=== PATIENT | female | born 1940 | race American Indian/Alaskan Native ===

== ENCOUNTER → 2023-10-04 09:50 | Outpatient (REF) | payer MEDICARE, OTHER, SELFPAY ==
[2023-10-04 10:40] LABS: % Basophils 0.6 % (0-2); % Eosinophils 1.9 % (0-6); % Lymphocytes 45.9 % (20.5-51.1); % Monocytes 7.5 % (1.7-9.3); % Neutrophils 44.1 % (42.2-75.2); Absolute Eosinophils 0.1 10^3/uL (0-0.7); Absolute Lymphocytes 2.4 10^3/uL (1.2-3.4); Absolute Monocytes 0.4 10^3/uL (0.1-0.6); Absolute Neutrophils 2.3 10^3/uL (1.4-6.5); Hematocrit 38.5 % (37.0-47.0); Hemoglobin 13.1 g/dL (12.0-16.0); Mean Corpuscular Hgb 30.5 pg (27.0-31.0); Mean Corpuscular Volume 89.7 fL (81.0-99.0); Mean Platelet Volume 11.9 fL (7.4-10.4); Nucleated Red Blood Cells % 0 %; Platelet Count 170 10^3/uL (130-400); Red Blood Cell Count 4.29 10^6/uL (4.20-5.40); Red Cell Dist. Width 12.9 % (11.5-14.5); White Blood Cell Count 5.2 10^3/uL (4.8-10.8)
[2023-10-04 10:46] LABS: PT 23.8 Sec (11.4-14.6)
[2023-10-04 11:20] LABS: ALT (SGPT) 29 U/L (0-35); AST (SGOT) 38 U/L (14-36); Albumin 4.1 g/dl (3.5-5.0); Alkaline Phosphatase 77 U/L (38-126); Blood Urea Nitrogen 22 mg/dl (7-17); Calcium 9.3 mg/dl (8.4-10.2); Carbon Dioxide 26 mmol/L (22-30); Chloride 107 mmol/L (98-107); Glucose 110 mg/dl (70-99); HDL Cholesterol 63 mg/dl; LDL Cholesterol, Calculated 63 mg/dl; Potassium 4.6 mmol/L (3.5-5.1); Sodium 137 mmol/L (135-145); Total Bilirubin 0.5 mg/dl (0.2-1.3); Total Cholesterol 150 mg/dl (50-199); Triglyceride 124 mg/dl (10-149); Very Low Density Lipoprotein 24 mg/dl (0-30); eGFR > 60.00
[2023-10-04 11:35] LABS: Vitamin D, 25-OH*** 67.4 ng/mL (30-80)
[2023-10-04 11:49] LABS: TSH 0.36 uIU/ml (0.47-4.68)
[2023-10-04 13:24] LABS: Glycohemoglobin (HgbA1c) 6.1 % (4.0-5.6)
[2023-10-05 22:01] LABS: Insulin, Random 17 uIU/mL
== END ==
LOC: OLABPV 09:50
PROVIDERS: ATTENDING PHYSICIAN Internal Medicine; FAMILY PHYSICIAN Internal Medicine
DX: I48.0 Paroxysmal atrial fibrillation (principal); E78.00 Pure hypercholesterolemia, unspecified; M85.9 Disorder of bone density and structure, unspecified; R73.03 Prediabetes; E03.9 Hypothyroidism, unspecified; E55.9 Vitamin D deficiency, unspecified
CPT/HCPCS: 36415; 80053; 80061; 82306; 83036; 83525; 84443; 85025; 85610

== ENCOUNTER → 2023-11-01 10:05 | Outpatient (REF) | payer MEDICARE, OTHER, SELFPAY ==
[2023-11-01 11:31] LABS: INR 2.55; PT 27.7 Sec (11.4-14.6)
== END ==
LOC: OLABPV 10:05
PROVIDERS: ATTENDING PHYSICIAN Internal Medicine
DX: I48.0 Paroxysmal atrial fibrillation (principal)
CPT/HCPCS: 36415; 85610

== ENCOUNTER → 2023-11-29 09:17 | Outpatient (REF) | payer MEDICARE, OTHER, SELFPAY ==
[2023-11-29 11:08] LABS: INR 2.16; PT 24.3 Sec (11.4-14.6)
== END ==
LOC: OLABPV 09:17
PROVIDERS: ATTENDING PHYSICIAN Internal Medicine
DX: I48.0 Paroxysmal atrial fibrillation (principal)
CPT/HCPCS: 36415; 85610

== ENCOUNTER → 2023-12-27 10:34 | Outpatient (REF) | payer MEDICARE, OTHER, SELFPAY ==
[2023-12-27 11:30] LABS: INR 2.15; PT 24.2 Sec (11.4-14.6)
== END ==
LOC: OLABPV 10:34
PROVIDERS: ATTENDING PHYSICIAN Internal Medicine
DX: I48.0 Paroxysmal atrial fibrillation (principal)
CPT/HCPCS: 36415; 85610

== ENCOUNTER → 2024-01-24 09:48 | Outpatient (REF) | payer MEDICARE, OTHER, SELFPAY ==
[2024-01-24 10:25] LABS: INR 2.79; PT 29.4 Sec (11.4-14.6)
== END ==
LOC: OLABPV 09:48
PROVIDERS: ATTENDING PHYSICIAN Internal Medicine
DX: I48.0 Paroxysmal atrial fibrillation (principal)
CPT/HCPCS: 36415; 85610

== ENCOUNTER → 2024-02-20 16:06 | Outpatient (REF) | payer MEDICARE, OTHER, SELFPAY ==
[2024-02-20 16:40] LABS: INR 3.06; PT 31.6 Sec (11.4-14.6)
== END ==
LOC: OLABPV 16:06
PROVIDERS: ATTENDING PHYSICIAN Internal Medicine
DX: I48.0 Paroxysmal atrial fibrillation (principal)
CPT/HCPCS: 36415; 85610

== ENCOUNTER → 2024-03-19 11:37 | Outpatient (REF) | payer MEDICARE, OTHER, SELFPAY ==
[2024-03-19 12:11] LABS: INR 2.88; PT 30.1 Sec (11.4-14.6)
== END ==
LOC: OLABPV 11:37
PROVIDERS: ATTENDING PHYSICIAN Internal Medicine
DX: I48.0 Paroxysmal atrial fibrillation (principal)
CPT/HCPCS: 36415; 85610

== ENCOUNTER → 2024-04-08 14:03 | Outpatient (REF) | payer MEDICARE, OTHER, SELFPAY | LOC: WDC 14:03 | PROVIDERS: ATTENDING PHYSICIAN Internal Medicine | DX: Z12.31 Encounter for screening mammogram for malignant neoplasm of breast (principal) | CPT/HCPCS: 77063; 77067 ==

== ENCOUNTER → 2024-04-16 10:12 | Outpatient (REF) | payer MEDICARE, OTHER, SELFPAY ==
[2024-04-16 11:35] LABS: INR 2.86; PT 29.9 Sec (11.4-14.6)
== END ==
LOC: OLABPV 10:12
PROVIDERS: ATTENDING PHYSICIAN Internal Medicine; FAMILY PHYSICIAN Internal Medicine
DX: I48.0 Paroxysmal atrial fibrillation (principal); E03.9 Hypothyroidism, unspecified
CPT/HCPCS: 36415; 84443; 85610

== ENCOUNTER → 2024-05-14 09:49 | Outpatient (REF) | payer MEDICARE, OTHER, SELFPAY ==
[2024-05-14 10:54] LABS: PT 30.2 Sec (11.4-14.6)
== END ==
LOC: OLABPV 09:49
PROVIDERS: ATTENDING PHYSICIAN Internal Medicine
DX: I48.0 Paroxysmal atrial fibrillation (principal)
CPT/HCPCS: 36415; 85610

== ENCOUNTER → 2024-06-18 10:36 | Outpatient (REF) | payer MEDICARE, OTHER, SELFPAY ==
[2024-06-18 11:40] LABS: PT 23.4 Sec (11.4-14.6)
== END ==
LOC: OLABPV 10:36
PROVIDERS: ATTENDING PHYSICIAN Internal Medicine
DX: I48.0 Paroxysmal atrial fibrillation (principal)
CPT/HCPCS: 36415; 85610

== ENCOUNTER → 2024-07-16 09:28 | Outpatient (REF) | payer MEDICARE, OTHER, SELFPAY ==
[2024-07-16 10:51] LABS: INR 1.66; PT 19.8 Sec (11.4-14.6)
== END ==
LOC: OLABPV 09:28
PROVIDERS: ATTENDING PHYSICIAN Internal Medicine
DX: I48.0 Paroxysmal atrial fibrillation (principal)
CPT/HCPCS: 36415; 85610

== ENCOUNTER → 2024-07-23 09:56 | Outpatient (REF) | payer MEDICARE, OTHER, SELFPAY ==
[2024-07-23 10:37] LABS: INR 2.05; PT 23.2 Sec (11.4-14.6)
== END ==
LOC: OLABPV 09:56
PROVIDERS: ATTENDING PHYSICIAN Internal Medicine
DX: I48.0 Paroxysmal atrial fibrillation (principal)
CPT/HCPCS: 36415; 85610

== ENCOUNTER → 2024-07-25 11:35 | Outpatient (REF) | payer MEDICARE, OTHER, SELFPAY ==
[2024-07-30 10:54] LABS: INR 2.25
== END ==
LOC: OLABPV 11:35
PROVIDERS: ATTENDING PHYSICIAN Internal Medicine
DX: I48.0 Paroxysmal atrial fibrillation (principal)
CPT/HCPCS: 36415; 85610

== ENCOUNTER → 2024-08-06 09:13 | Outpatient (REF) | payer MEDICARE, OTHER, SELFPAY ==
[2024-08-06 10:32] LABS: INR 3.02; PT 31.2 Sec (11.4-14.6)
== END ==
LOC: OLABPV 09:13
PROVIDERS: ATTENDING PHYSICIAN Internal Medicine
DX: I48.0 Paroxysmal atrial fibrillation (principal)
CPT/HCPCS: 36415; 85610

== ENCOUNTER → 2024-08-13 09:44 | Outpatient (REF) | payer MEDICARE, OTHER, SELFPAY ==
[2024-08-13 10:37] LABS: INR 3.08; PT 31.7 Sec (11.4-14.6)
== END ==
LOC: OLABPV 09:44
PROVIDERS: ATTENDING PHYSICIAN Internal Medicine
DX: I48.0 Paroxysmal atrial fibrillation (principal)
CPT/HCPCS: 36415; 85610

== ENCOUNTER → 2024-09-10 10:26 | Outpatient (REF) | payer MEDICARE, OTHER, SELFPAY ==
[2024-09-10 12:31] LABS: INR 2.28; PT 25.2 Sec (11.4-14.6)
== END ==
LOC: OLABPV 10:26
PROVIDERS: ATTENDING PHYSICIAN Internal Medicine
DX: I48.0 Paroxysmal atrial fibrillation (principal)
CPT/HCPCS: 36415; 85610

== ENCOUNTER → 2024-10-08 09:25 | Outpatient (REF) | payer MEDICARE, OTHER, SELFPAY ==
[2024-10-08 11:37] LABS: % Basophils 0.7 % (0-2); % Eosinophils 2.3 % (0-6); % Immature Granulocytes 0.3 % (0-0.5); % Lymphocytes 42.3 % (20.5-51.1); % Monocytes 8.2 % (1.7-9.3); % Neutrophils 46.2 % (42.2-75.2); Absolute Eosinophils 0.1 10^3/uL (0-0.7); Absolute Lymphocytes 2.5 10^3/uL (1.2-3.4); Absolute Monocytes 0.5 10^3/uL (0.1-0.6); Absolute Neutrophils 2.8 10^3/uL (1.4-6.5); Hematocrit 37.7 % (37.0-47.0); Hemoglobin 12.7 g/dL (12.0-16.0); Mean Corp Hgb Conc. 33.7 g/dL (33.0-37.0); Mean Corpuscular Hgb 29.6 pg (27.0-31.0); Mean Corpuscular Volume 87.9 fL (81.0-99.0); Mean Platelet Volume 12.3 fL (7.4-10.4); Nucleated Red Blood Cells % 0 %; Platelet Count 195 10^3/uL (130-400); Red Blood Cell Count 4.29 10^6/uL (4.20-5.40); Red Cell Dist. Width 13.5 % (11.5-14.5)
[2024-10-08 11:40] LABS: INR 2.75; PT 29.1 Sec (11.4-14.6)
[2024-10-08 11:52] LABS: ALT (SGPT) 30 U/L (0-35); AST (SGOT) 33 U/L (14-36); Albumin 4.5 g/dl (3.5-5.0); Alkaline Phosphatase 66 U/L (38-126); Blood Urea Nitrogen 20 mg/dl (7-17); Calcium 8.9 mg/dl (8.4-10.2); Carbon Dioxide 20 mmol/L (22-30); Chloride 107 mmol/L (98-107); Glucose 118 mg/dl (70-99); HDL Cholesterol 62 mg/dl; LDL Cholesterol, Calculated 83 mg/dl; Potassium 4.7 mmol/L (3.5-5.1); Sodium 137 mmol/L (135-145); Total Bilirubin 0.8 mg/dl (0.2-1.3); Total Cholesterol 171 mg/dl (50-199); Total Protein 7.1 g/dl (6.3-8.2); Triglyceride 130 mg/dl (10-149); Very Low Density Lipoprotein 26 mg/dl (0-30); eGFR 54.87
[2024-10-08 12:04] LABS: Free T4 1.11 ng/dl (0.78-2.19)
[2024-10-08 12:18] LABS: TSH 4.56 uIU/ml (0.47-4.68)
== END ==
LOC: OLABPV 09:25
PROVIDERS: ATTENDING PHYSICIAN Internal Medicine; FAMILY PHYSICIAN Physician Assistant
DX: I48.0 Paroxysmal atrial fibrillation (principal); Z76.89 Persons encountering health services in other specified circumstances; E03.9 Hypothyroidism, unspecified; E78.00 Pure hypercholesterolemia, unspecified
CPT/HCPCS: 36415; 80053; 80061; 84439; 84443; 85025; 85610

== ENCOUNTER → 2024-11-05 10:19 | Outpatient (REF) | payer MEDICARE, OTHER, SELFPAY ==
[2024-11-05 11:20] LABS: INR 3.58; PT 35.5 Sec (11.4-14.6)
== END ==
LOC: OLABPV 10:19
PROVIDERS: ATTENDING PHYSICIAN Internal Medicine
DX: I48.0 Paroxysmal atrial fibrillation (principal)
CPT/HCPCS: 36415; 85610

== ENCOUNTER → 2024-11-12 11:20 | Outpatient (REF) | payer MEDICARE, OTHER, SELFPAY ==
[2024-11-12 12:29] LABS: INR 3.34; PT 33.7 Sec (11.4-14.6)
== END ==
LOC: OLABPV 11:20
PROVIDERS: ATTENDING PHYSICIAN Internal Medicine
DX: I48.0 Paroxysmal atrial fibrillation (principal)
CPT/HCPCS: 36415; 85610

== ENCOUNTER → 2024-11-19 12:36 | Outpatient (REF) | payer MEDICARE, OTHER, SELFPAY ==
[2024-11-19 13:23] LABS: INR 2.84; PT 29.8 Sec (11.4-14.6)
== END ==
LOC: OLABPV 12:36
PROVIDERS: ATTENDING PHYSICIAN Internal Medicine
DX: I48.0 Paroxysmal atrial fibrillation (principal)
CPT/HCPCS: 36415; 85610

== ENCOUNTER → 2024-11-26 13:12 | Outpatient (REF) | payer MEDICARE, OTHER, SELFPAY ==
[2024-11-26 13:23] LABS: INR 2.82; PT 29.6 Sec (11.4-14.6)
== END ==
LOC: OLABPV 13:12
PROVIDERS: ATTENDING PHYSICIAN Internal Medicine
DX: I48.0 Paroxysmal atrial fibrillation (principal)
CPT/HCPCS: 85610

== ENCOUNTER → 2024-12-04 09:24 | Outpatient (REF) | payer MEDICARE, OTHER, SELFPAY ==
[2024-12-04 10:27] LABS: INR 1.91; PT 22.4 Sec (11.4-14.6)
== END ==
LOC: OLABPV 09:24
PROVIDERS: ATTENDING PHYSICIAN Internal Medicine
DX: I48.0 Paroxysmal atrial fibrillation (principal)
CPT/HCPCS: 36415; 85610

== ENCOUNTER → 2024-12-11 09:51 | Outpatient (REF) | payer MEDICARE, OTHER, SELFPAY ==
[2024-12-11 10:42] LABS: INR 2.34; PT 26.1 Sec (11.4-14.6)
== END ==
LOC: OLABPV 09:51
PROVIDERS: ATTENDING PHYSICIAN Internal Medicine
DX: I48.0 Paroxysmal atrial fibrillation (principal)
CPT/HCPCS: 36415; 85610

== ENCOUNTER → 2024-12-18 13:41 | Outpatient (REF) | payer MEDICARE, OTHER, SELFPAY ==
[2024-12-18 13:50] LABS: INR 2.55; PT 27.8 Sec (11.4-14.6)
== END ==
LOC: OLABPV 13:41
PROVIDERS: ATTENDING PHYSICIAN Internal Medicine
DX: I48.0 Paroxysmal atrial fibrillation (principal)
CPT/HCPCS: 36415; 85610

== ENCOUNTER → 2025-05-13 13:46 | Outpatient (REF) | payer MEDICARE, OTHER, SELFPAY | LOC: RCS 13:46 | PROVIDERS: ATTENDING PHYSICIAN Internal Medicine; FAMILY PHYSICIAN Physician Assistant | DX: I48.0 Paroxysmal atrial fibrillation (principal); I34.0 Nonrheumatic mitral (valve) insufficiency; I35.1 Nonrheumatic aortic (valve) insufficiency; I44.0 Atrioventricular block, first degree | CPT/HCPCS: 93306 ==

== ENCOUNTER → 2025-05-14 11:35 | Outpatient (REF) | payer MEDICARE, OTHER, SELFPAY ==
[2025-05-14 12:49] LABS: Blood Urea Nitrogen 16 mg/dl (7-17); Calcium 9.5 mg/dl (8.4-10.2); Carbon Dioxide 27 mmol/L (22-30); Chloride 106 mmol/L (98-107); Glucose 108 mg/dl (70-99); Potassium 4.5 mmol/L (3.5-5.1); Sodium 137 mmol/L (135-145); eGFR > 60.00
== END ==
LOC: OLABPV 11:35
PROVIDERS: ATTENDING PHYSICIAN Internal Medicine
DX: I48.0 Paroxysmal atrial fibrillation (principal)
CPT/HCPCS: 36415; 80048

== ENCOUNTER → 2025-05-15 13:53 | Outpatient (REF) | payer MEDICARE, OTHER, SELFPAY | LOC: WDC 13:53 | PROVIDERS: ATTENDING PHYSICIAN Physician Assistant | DX: Z12.31 Encounter for screening mammogram for malignant neoplasm of breast (principal) | CPT/HCPCS: 77063; 77067 ==

== ENCOUNTER → 2025-05-21 14:03 | Outpatient (REF) | payer MEDICARE, OTHER, SELFPAY | LOC: RAD 14:03 | PROVIDERS: ATTENDING PHYSICIAN Internal Medicine; FAMILY PHYSICIAN Physician Assistant | DX: I65.23 Occlusion and stenosis of bilateral carotid arteries (principal) | CPT/HCPCS: 93880 ==